=== PATIENT | female | born 1955 | race Caucasian/White ===

== ENCOUNTER 2019-04-11 15:42 | Outpatient (CLI) | payer OTHER, SELFPAY ==
--- NOTE | ~2019-04-11 | MM_ITS ---
EXAMINATION: MM screening [facility] BI w josh HISTORY: Screening mammogram TECHNIQUE: Craniocaudal and mediolateral oblique 3-D tomosynthesis images were obtained and synthetic 2-D images were generated. CAD analysis was submitted and interpreted. COMPARISON: 09/18/2017, 07/02/2016, 02/22/2015 BREAST PARENCHYMAL COMPOSITION: There are scattered areas of fibroglandular density. FINDINGS: Scattered benign-appearing calcifications are present. There is stable asymmetry in the ant erior third of the outer right breast on the craniocaudal view. There is no evidence of suspicious ma ss, calcification, or architectural distortion to suggest malignancy in either breast. There has been no suspicious interval change. IMPRESSION: 1. No mammographic evidence of malignancy. 2. Recommend routine screening mammography in one year. BI-RADS Category 2: Benign finding(s). Reviewed, dictated and finalized at location A. CLOSER
== END 2019-04-11 15:43 | disposition home or self-care (01) ==
DX: Z12.31 Encounter for screening mammogram for malignant neoplasm of breast (principal)
CPT/HCPCS: 77063; 77067

== ENCOUNTER 2019-11-14 12:00 | Outpatient (CLI) | payer OTHER, SELFPAY ==
[2019-11-14 13:33] LABS: Hemoglobin A1C 8.9 % (<5.7)
[2019-11-14 13:36] LABS: Anion Gap 10 mmol/L (8-16); Blood Urea Nitrogen 15 mg/dL (7-17); Calcium 9.8 mg/dL (8.4-10.2); Carbon Dioxide 26 mmol/L (22-30); Chloride 101 mmol/L (98-107); Estimated Glomerular Filt Rate > 60; Glucose 149 mg/dL (65-105); Potassium 4.3 mmol/L (3.4-5.0); Sodium 137 mmol/L (137-145)
== END 2019-11-14 12:01 | disposition home or self-care (01) ==
LOC: ANHLAB 12:03
PROVIDERS: PCP Family Medicine; Visit Provider Family Medicine
DX: E11.65 Type 2 diabetes mellitus with hyperglycemia (principal)
CPT/HCPCS: 36415; 80048; 83036

== ENCOUNTER 2020-05-28 07:30 | Outpatient (CLI) | payer OTHER, SELFPAY ==
--- NOTE | ~2020-05-28 | MM_ITS ---
EXAMINATION: MM screening [facility] BI w josh HISTORY: Screening mammogram TECHNIQUE: Craniocaudal and mediolateral oblique 3-D tomosynthesis images were obtained and synthetic 2-D images were generated. CAD analysis was submitted and interpreted. COMPARISON: 04/11/2019, 09/18/2017, 07/02/2016 bilateral digital screening mammogram examinations BREAST PARENCHYMAL COMPOSITION: There are scattered areas of fibroglandular density. FINDINGS: Occasional benign calcifications. There is no evidence of suspicious mass, calcification, o r architectural distortion to suggest malignancy in either breast. There has been no suspicious inter reina change. IMPRESSION: 1. No mammographic evidence of malignancy. 2. Recommend routine screening mammography in one year. BI-RADS Category 2: Benign finding(s). Reviewed, dictated and finalized at location A.
== END 2020-05-28 07:31 | disposition home or self-care (01) ==
PROVIDERS: PCP Family Medicine
DX: Z12.31 Encounter for screening mammogram for malignant neoplasm of breast (principal)
CPT/HCPCS: 77063; 77067

== ENCOUNTER 2021-06-14 01:05 | Day surgery (SDC) | payer OTHER, MEDICARE, SELFPAY ==
[2021-06-03 10:10] VITALS: BMI 25.1
[2021-06-14 09:20] VITALS: BP 130/67; PULSE 81; RESP 81; TEMP 36.6; O2SAT 99; BMI 24.5
[2021-06-14] MEDS: LACTATED RINGERS 1,000 ML 150 ML IV CONT (09:43)
[2021-06-14 09:45] LABS: Glucose Point of Care 169 mg/dl (65-105)
--- NOTE | 2021-06-14 09:51 | WPDGICN ---
Assessment and Plan Assessment and plan (1) Encounter for screening colonoscopy: Code(s): Z12.11 - Encounter for screening for malignant neoplasm of colon Status: Acute Assessment and Plan: Patient presents for neoplasia screening colonoscopy. She appears to be at average risk for colon polyps. Further recommendations will be given after endoscopy. (2) Arteriovenous malformation of digestive system vessel: Code(s): K55.20 - Angiodysplasia of colon without hemorrhage Status: Acute Assessment and Plan: Patient has a distant history of an AVM of the colon identified a colonoscopy 8 years ago. This will be assessed at the time of screening colonoscopy. GI Consult Note Consult date/time: 06/14/21 09:51 HPI: Donald De is a 65 year old female Presents for screening colonoscopy. Patient reports that her current weight appetite and bowel movements are normal. She denies abdominal pain. She has had no bleeding. Family history is significant that her father had colon polyps. Patient did have a colonoscopy 8-10 years ago that revealed a small AVM. She has had no recent bleeding. She denies abdominal pain. Review of Systems Review of Systems: All systems reviewed & are unremarkable except as noted in HPI and below PMFSH Past Medical History Medical History (Updated 06/14/21 @ 09:52 by Lucio Forman MD) SOB (shortness of breath) (01/23/19) Family History Family History (Updated 12/24/17 @ 09:36 by DOCTOR UNKNOWN) Sibling Diabetes mellitus Grandparent Family history of glaucoma Diabetes mellitus Mother Hypertension, Onset Age: 78 Family history of cardiovascular disease, Onset Age: 78 Family history of malignant neoplasm Family history of congestive heart failure, Onset Age: 78 Father Family history of cardiovascular disease Diabetes mellitus Social History Social History Smoking packs per day: 1 Smoking cigarettes per day: 20.0 Years smoked: 10 Smoking pack-years: 10.00 Smoking status: Former smoker Tobacco type: cigarettes Alcohol intake: never Substance use: never Substance use type: does not use Living arrangements: with family Spiritual care concerns: No Meds Home Medications and Allergies Home Medications Medication Instructions Recorded Confirmed Type aspirin 81 mg tablet,delayed 81 mg PO DAILY 01/25/19 06/14/21 History release fenofibrate 150 mg capsule 150 mg PO DAILY 01/25/19 06/14/21 History loratadine 10 mg tablet 10 mg PO DAILY 01/25/19 06/14/21 History sitagliptin 50 mg-metformin 1,000 1 tablet PO BID 01/25/19 06/14/21 History mg tablet fluoxetine 40 mg capsule 40 mg PO DAILY #90 cap 02/10/19 06/14/21 Rx lisinopril 10 mg tablet 10 mg PO DAILY #90 tablet 03/24/19 06/14/21 Rx atorvastatin 20 mg PO HS 06/03/21 06/14/21 History budesonide-formoterol [Symbicort] 2 puff INHALATION DAILY 06/03/21 06/14/21 History calcium 600 mg PO BID 06/03/21 06/14/21 History cholecalciferol (vitamin D3) 25 mcg PO DAILY 06/03/21 06/14/21 History [Vitamin D3] dapagliflozin [Farxiga] 10 mg PO DAILY 06/03/21 06/14/21 History fluticasone propionate [Flonase] 2 spray INTRANASAL DAILY 06/03/21 06/14/21 History gemfibrozil 600 mg PO BID 06/03/21 06/14/21 History insulin glargine [Lantus Solostar 20 unit SUBCUT DAILY 06/03/21 06/14/21 History U-100 Insulin] qbvgzkgxaotq-Os-ksml-minerals 1 tablet PO DAILY 06/03/21 06/14/21 History [Multiple Vitamin, Womens] omeprazole 40 mg PO DAILY 06/03/21 06/14/21 History pioglitazone 45 mg PO DAILY 06/03/21 06/14/21 History Allergies Allergy/AdvReac Type Severity Reaction Status Date / Time Penicillins Allergy Severe Swelling Verified 06/14/21 09:29 Vital Signs Vital Signs - 24 hr 06/14/21 09:20 Temperature 97.9 F Pulse Rate 81 Respiratory Rate 81 H Blood Pressure 130/67 Pulse Oximetry 99 Exam Narrative: Physical exam reveals patient to be cliff
--- NOTE | 2021-06-14 10:19 | WPDANESEPPF ---
Anes - Initial Pre Proc Eval Procedure: Operation Date: 06/14/21 10:30 Proposed Procedures p Screening Colonoscopy - Lucio Forman MD Date/Time: 06/14/21 10:20 Surgeon: Lucio Forman MD Pre Op Diagnosis: neoplasm screening Patient Data Age: 65 Gender: F Height: 1.73 m Weight: 73.2 kg Last Vital Signs Temp 97.9 F 06/14/21 09:20 Pulse 81 06/14/21 09:20 Resp 81 H 06/14/21 09:20 BP 130/67 06/14/21 09:20 Pulse Ox 99 06/14/21 09:20 Allergies Allergy/AdvReac Type Severity Reaction Status Date / Time Penicillins Allergy Severe Swelling Verified 06/14/21 09:29 Home Medications Medication Instructions Recorded Confirmed Type aspirin 81 mg tablet,delayed 81 mg PO DAILY 01/25/19 06/14/21 History release fenofibrate 150 mg capsule 150 mg PO DAILY 01/25/19 06/14/21 History loratadine 10 mg tablet 10 mg PO DAILY 01/25/19 06/14/21 History sitagliptin 50 mg-metformin 1,000 1 tablet PO BID 01/25/19 06/14/21 History mg tablet fluoxetine 40 mg capsule 40 mg PO DAILY #90 cap 02/10/19 06/14/21 Rx lisinopril 10 mg tablet 10 mg PO DAILY #90 tablet 03/24/19 06/14/21 Rx atorvastatin 20 mg PO HS 06/03/21 06/14/21 History budesonide-formoterol [Symbicort] 2 puff INHALATION DAILY 06/03/21 06/14/21 History calcium 600 mg PO BID 06/03/21 06/14/21 History cholecalciferol (vitamin D3) 25 mcg PO DAILY 06/03/21 06/14/21 History [Vitamin D3] dapagliflozin [Farxiga] 10 mg PO DAILY 06/03/21 06/14/21 History fluticasone propionate [Flonase] 2 spray INTRANASAL DAILY 06/03/21 06/14/21 History gemfibrozil 600 mg PO BID 06/03/21 06/14/21 History insulin glargine [Lantus Solostar 20 unit SUBCUT DAILY 06/03/21 06/14/21 History U-100 Insulin] pfbclpuenbzr-Jk-czbo-minerals 1 tablet PO DAILY 06/03/21 06/14/21 History [Multiple Vitamin, Womens] omeprazole 40 mg PO DAILY 06/03/21 06/14/21 History pioglitazone 45 mg PO DAILY 06/03/21 06/14/21 History Laboratory Tests 06/14/21 09:42 POC Capillary Glucose 169 mg/dl H mg/dl (65-105) Patient hx anesthesia problems: none Family hx anesthesia problems: none Results Review: All pre-operative results and documents have been reviewed as part of the pre-operative evaluation. [facility] Past Medical History Medical History (Updated 06/14/21 @ 09:52 by Lucio Forman MD) SOB (shortness of breath) (01/23/19) Family History Family History (Updated 12/24/17 @ 09:36 by DOCTOR UNKNOWN) Sibling Diabetes mellitus Grandparent Family history of glaucoma Diabetes mellitus Mother Hypertension, Onset Age: 78 Family history of cardiovascular disease, Onset Age: 78 Family history of malignant neoplasm Family history of congestive heart failure, Onset Age: 78 Father Family history of cardiovascular disease Diabetes mellitus Social History Social History Smoking packs per day: 1 Smoking cigarettes per day: 20.0 Years smoked: 10 Smoking pack-years: 10.00 Smoking status: Former smoker Tobacco type: cigarettes Alcohol intake: never Substance use: never Substance use type: does not use Living arrangements: with family Spiritual care concerns: No Anes - Eval Final PreProcedure Day of Procedure 06/14/21 10:20 Patient weight: overweight Heart: regular rate and rhythm Lungs: clear to auscultation Airway: Mallampati scale class III Neurological: alert and oriented Last oral intake: >/= 8 hours ASA classification: III Emergent: no Anesthetic plan: proceed Anesthesia type and monitoring: general GIVS and standard monitoring Results Review: All pre-operative results and documents have been reviewed as part of the pre-operative evaluation. Informed Consent: The patient's anesthetic plan and its attendant risks and benefits were discussed with the patient/family/POA. Questions were solicited and answers provided to the satisfaction of the patient/family/POA.
[2021-06-14] MEDS: SIMETHICONE ORAL SUSPENSION 20 MG/0.3 ML 30 ML BOTTLE 0.6 ML IRRIGATION (10:29)
[2021-06-14 10:38] VITALS: BP 115/65; PULSE 73; RESP 22; O2SAT 99
[2021-06-14 10:48] VITALS: BP 112/65; PULSE 72; RESP 25; O2SAT 99
[2021-06-14 10:58] VITALS: BP 114/72; PULSE 69; RESP 20; O2SAT 99
[2021-06-14 11:03] LABS: Glucose Point of Care 138 mg/dl (65-105)
== END 2021-06-14 11:05 | disposition home or self-care (01) ==
PROVIDERS: PCP Family Medicine; Visit Provider Internal Medicine Gastroenterology
PROC: 0DJD8ZZ Inspection of Lower Intestinal Tract, Via Natural or Artificial Opening Endoscopic (ICD-10-PCS; CPT 45378; principal; 2021-06-14 10:30)
DX: Z12.11 Encounter for screening for malignant neoplasm of colon (principal); Z83.71 Family history of colonic polyps; K22.0 Achalasia of cardia; K64.8 Other hemorrhoids; Z79.82 Long term (current) use of aspirin; Z79.4 Long term (current) use of insulin; Z87.891 Personal history of nicotine dependence
CPT/HCPCS: 45378; 82948; J2704; J7120

== ENCOUNTER 2021-07-19 14:39 | Outpatient (CLI) | payer OTHER, MEDICARE, SELFPAY ==
--- NOTE | ~2021-07-19 | DEXA_ITS ---
Bone Density Report Name: FELI FLORES Age: 65 Sex: Female Ethnicity: White Date of : 1955 Indication: postmenopausal; screening for osteoporosis; height loss; hysterectomy; Referring Provider: GUY NUÑEZ Study: Bone densitometry was performed. Exam Date: July 19, 2021 Accession number: [id number] Bone Density: Region BMD T-score Z-score Classification AP Spine(L1-L4) 1.152 1.0 2.8 Normal Femoral Neck (Left) 0.655 -1.8 -0.2 Osteopenia Total Hip (Left) 0.769 -1.4 -0.1 Osteopenia Femoral Neck (Right) 0.668 -1.6 -0.1 Osteopenia Total Hip (Right) 0.815 -1.0 0.2 Normal Total Hip Mean 0.792 -1.2 0.1 Osteopenia World Health Organization criteria for BMD impression classify patients as: Normal (T-score at or above -1.0), Osteopenia (T-score between -1.0 and -2.5), or Osteoporosis (T-score at or below -2.5). 10-year Fracture Risk(1): Major Osteoporotic Fracture 9.8% Hip Fracture 1.3% Reported Risk Factors: [place] (), Neck BMD=0.655, BMI=26.3 (1) FRAX(R) Version 3.08. Fracture probability calculated for an untreated patient. Fracture probability may be lower if the patient has received treatment. Clinical Information Provided by Patient: Has used the following medications: Vitamin D, Calcium Has the following medical conditions: Hysterectomy Patient maximum height was 68 Menopause Age: 27 No regular weight bearing exercise Drinks caffeinated beverages Onset of menses at age 14 Number of children 1 Impression: The patient has low bone mass, based on the Left Femoral Neck T-score. The patient has an estimated ten-year risk of hip fracture of 1.3% and an estimated ten-year risk of major fracture of 9.8%, based on the WHO FRAX algorithm. Discussion: BONE DENSITY IS LOW AT ONE OR MORE SKELETAL SITES. This patient's lowest T-score is low at one or more skeletal sites. It meets the World Health Organization's (WHO) criteria for ?low bone mass? (T-score between -1.0 and -2.5). The patient's 10-year risk of fracture as calculated by FRAX is less than the threshold where pharmacological therapy is recommended by the National Osteoporosis Foundation (NOF). However, all treatment decisions require clinical judgment and consideration of individual patient factors, including patient preferences, comorbidities, previous drug use, risk factors not captured in the FRAX model (e.g., frailty, falls, vitamin D deficiency, increased bone turnover, interval significant decline in bone density) and possible under or overestimation of fracture risk by FRAX. The patient should follow a healthful lifestyle (good nutrition with adequate calcium and vitamin D, and appropriate weight-bearing exercise). Follow-Up: Consider repeating this study in 2 to 3 years to reassess this patient's status,
--- NOTE | ~2021-07-19 | MM_ITS ---
EXAMINATION: MM screening [facility] BI w josh HISTORY: Screening mammogram TECHNIQUE: Craniocaudal and mediolateral oblique 3-D tomosynthesis images were obtained and synthetic 2-D images were generated. CAD analysis was submitted and interpreted. COMPARISON: 05/28/2020, 04/11/2019, 09/18/2017 bilateral screening mammogram examinations BREAST PARENCHYMAL COMPOSITION: There are scattered areas of fibroglandular density FINDINGS: There is no evidence of suspicious mass, calcification, or architectural distortion to sugg est malignancy in either breast. There has been no suspicious interval change. IMPRESSION: 1. No mammographic evidence of malignancy. 2. Recommend routine screening mammography in one year. BI-RADS Category 1: Negative Reviewed, dictated and finalized at location A.
== END 2021-07-19 14:40 | disposition home or self-care (01) ==
DX: Z12.31 Encounter for screening mammogram for malignant neoplasm of breast (principal); Z78.0 Asymptomatic menopausal state; Z13.820 Encounter for screening for osteoporosis; M85.852 Other specified disorders of bone density and structure, left thigh; M85.851 Other specified disorders of bone density and structure, right thigh
CPT/HCPCS: 77063; 77067; 77080

== ENCOUNTER 2021-08-06 07:23 | Outpatient (CLI) | payer OTHER, MEDICARE, SELFPAY ==
[2021-08-06 08:14] LABS: Hemoglobin A1C 9.1 % (<5.7)
[2021-08-06 08:30] LABS: Anion Gap 7 mmol/L (8-16); Blood Urea Nitrogen 21 mg/dL (7-17); Calcium 9.1 mg/dL (8.4-10.2); Carbon Dioxide 26 mmol/L (22-30); Chloride 102 mmol/L (98-107); Cholesterol 199 mg/dL (0-200); Estimated Glomerular Filt Rate > 60; Glucose 233 mg/dL (65-110); HDL Direct 36 mg/dL; Potassium 4.9 mmol/L (3.4-5.0); Sodium 135 mmol/L (137-145); Triglycerides 360 mg/dL (<150)
[2021-08-06 08:41] LABS: LDL Cholesterol Direct 86 mg/dL
== END 2021-08-06 07:24 | disposition home or self-care (01) ==
DX: E11.65 Type 2 diabetes mellitus with hyperglycemia (principal); E78.5 Hyperlipidemia, unspecified
CPT/HCPCS: 36415; 80048; 80061; 83036

== ENCOUNTER 2021-10-02 16:27 | Emergency (ER) | payer OTHER, MEDICARE, SELFPAY ==
[2021-10-02] VITALS (21 sets, daily range): BP systolic 94–132; BP diastolic 45–84; PULSE 77–95; RESP 10–29; TEMP 36.3; O2SAT 92–98
--- NOTE | ~2021-10-02 | CT_ITS ---
EXAMINATION: CT abdomen pelvis w con DATE: 10/02/2021 18:56 INDICATION: lower ABD pain, N/V/D TECHNIQUE: Computed tomography (CT) of the abdomen and pelvis was performed with 100 mL Omnipaque-350 intravenous contrast. Automated exposure control and iterative reconstruction technique were employe d. The dose-length product was 476.95 mGy-cm. COMPARISON: None. FINDINGS: Lower thorax: Coronary artery and/or bowel calcifications. Liver: Enlarged liver. Nodular border. Fatty infiltration. Biliary/Gallbladder: Gallbladder is absent. No bile duct dilation. Pancreas: No mass or duct dilation. Spleen: Enlarged. Adrenals:No mass. Kidneys: No mass, stone, or hydronephrosis. GI tract: No small or large bowel dilation. Appendix not visualized. Fluid-filled colon. Diverticulos is without diverticulitis. Mesentery/Peritoneum: No ascites, mass, or free air. Retroperitoneum: No mass. Pelvis: Uterus not visualized. Soft Tissues: Soft tissues and body wall unremarkable. Bones: No acute osseous finding. IMPRESSION: Hepatosplenomegaly and cirrhosis. Fluid-filled colon, as can be seen with diarrheal illness. Reviewed, dictated and finalized at location K. IMPRESSION: Hepatosplenomegaly and cirrhosis. Fluid-filled colon, as can be seen with diarr heal illness.
[2021-10-02 16:33] LABS: Glucose Point of Care 229 mg/dl (65-105)
--- NOTE | 2021-10-02 17:00 | ED.NAVMDI ---
HPI - Nausea/Vomiting/Diarrhea General Chief complaint: Nausea/Vomiting/Diarrhea Stated complaint: emesis Time Seen by Provider: 10/02/21 16:56 Source: patient Mode of arrival: ambulatory Limitations: no limitations History of Present Illness HPI Narrative: Patient is a 66-year-old female who presents the ED with report of N/V/D. Patient reports she has had intermittent abdominal issues over the last couple months with intermittent episodes of nausea and vomiting. Today around 2 PM after eating lunch, she developed diarrhea. She then developed nausea and vomiting simultaneously. She states she has been unable to keep anything down since then. Her episodes over the last couple months have not been this severe. Reports some lower abdominal cramping. Denies any blood in vomit or stool. Denies any fever. Denies any recent cough or cold symptoms. No urinary symptoms. Patient does admit to occasional marijuana use, but states she has not used any in the last 2 weeks. Related Data Home Medications Medication Instructions Recorded Confirmed aspirin 81 mg tablet,delayed 81 mg PO DAILY 01/25/19 06/14/21 release fenofibrate 150 mg capsule 150 mg PO DAILY 01/25/19 06/14/21 loratadine 10 mg tablet (Claritin) 10 mg PO DAILY 01/25/19 06/14/21 sitagliptin 50 mg-metformin 1,000 1 tablet PO BID 01/25/19 06/14/21 mg tablet (Janumet) atorvastatin 20 mg tablet 20 mg PO HS 06/03/21 06/14/21 budesonide-formoterol HFA 80 2 puff inhalation DAILY 06/03/21 06/14/21 mcg-4.5 mcg/actuation aerosol inhaler (Symbicort) calcium 600 mg capsule 600 mg PO BID 06/03/21 06/14/21 cholecalciferol (vitamin D3) 25 25 mcg PO DAILY 06/03/21 06/14/21 mcg (1,000 unit) tablet (Vitamin D3) dapagliflozin 10 mg tablet 10 mg PO DAILY 06/03/21 06/14/21 (Farxiga) fluticasone propionate 50 2 spray intranasal DAILY 06/03/21 06/14/21 mcg/actuation nasal spray,suspension gemfibrozil 600 mg tablet 600 mg PO BID 06/03/21 06/14/21 insulin glargine 100 unit/mL (3 20 unit subcut DAILY 06/03/21 06/14/21 mL) subcutaneous pen (Lantus Solostar U-100 Insulin) yuwzvzgwceib-Nl-ucpu-minerals 1 tablet PO DAILY 06/03/21 06/14/21 omeprazole 40 mg capsule,delayed 40 mg PO DAILY 06/03/21 06/14/21 release pioglitazone 45 mg tablet 45 mg PO DAILY 06/03/21 06/14/21 Allergies Allergy/AdvReac Type Severity Reaction Status Date / Time Penicillins Allergy Severe Swelling Verified 06/14/21 09:29 Review of Systems Review of Systems: CONSTITUTIONAL: Denies fever, chills, or sweats. ENT: Denies rhinorrhea, congestion, sore throat. CARDIOVASCULAR: Denies chest pain. RESPIRATORY: Denies cough or dyspnea. GASTROINTESTINAL: Reports lower ABD cramping, N/V/D. Denies hematemesis, rectal bleeding, constipation. GENITOURINARY: Denies dysuria or hematuria. All systems reviewed & are unremarkable except as noted in HPI and below PMFSH Past Medical History Medical History (Updated 10/03/21 @ 03:04 by Marilu Aldrich PA-C) Arteriovenous malformation of digestive system vessel COPD (chronic obstructive pulmonary disease) Essential (primary) hypertension Fatty liver GERD (gastroesophageal reflux disease) Pure hyperglyceridemia SOB (shortness of breath) (01/23/19) Type 2 diabetes mellitus with hyperglycemia Surgical History Surgical History (Updated 10/02/21 @ 17:19 by Marilu Aldrich PA-C) History of cholecystectomy History of hysterectomy Family History Family History (Updated 12/24/17 @ 09:36 by DOCTOR UNKNOWN) Sibling Diabetes mellitus Grandparent Family history of glaucoma Diabetes mellitus Mother Hypertension, Onset Age: 78 Family history of cardiovascular disease, Onset Age: 78 Family history of malignant neoplasm Family history of congestive heart failure, Onset Age: 78 Father Family history of cardiovascular disease Diabetes mellitus Social History Social History (Updated 10/03/21 @ 00:30 by Marilu Aldrich PA-C) [place]
[2021-10-02] MEDS: ONDANSETRON INJ 4 MG/2 ML VIAL IV PUSH (17:30)
[2021-10-02] MEDS: SODIUM CHLORIDE 0.9% IV 1,000 ML 999 ML IV CONT ×3 (17:31→22:02)
[2021-10-02 17:33] LABS: Albumin Level 5.7 g/dL (3.5-5.1); Alkaline Phosphatase 61 U/L (38-126); Anion Gap 18 mmol/L (8-16); Aspartate Amino Transferase 53 U/L (14-36); Bilirubin,Total 0.8 mg/dL (0.2-1.3); Blood Urea Nitrogen 22 mg/dL (7-17); Calcium 11.4 mg/dL (8.4-10.2); Carbon Dioxide 20 mmol/L (22-30); Chloride 96 mmol/L (98-107); Estimated CRCL calculation 45 ml/min; Estimated Glomerular Filt Rate 50; Glucose 253 mg/dL (65-110); Lipase 251 U/L (23-300); Potassium 3.7 mmol/L (3.4-5.0); Sodium 134 mmol/L (137-145)
[2021-10-02 17:41] LABS: Alanine Aminotransferase 34 U/L (6-35)
[2021-10-02 18:04] LABS: Hematocrit 42.5 % (37.0-47.0); Hemoglobin 13.5 g/dL (12.0-15.0); Mean Corpuscular HGB Conc 31.8 g/dl (32-36); Mean Corpuscular Hemoglobin 29.2 pg (26-34); Mean Corpuscular Volume 91.8 fl (80-100); Mean Platelet Volume 11.3 fl (7.4-10.4); Platelet Count Result 369 k/mm3 (150-375); Red Blood Count 4.63 M/mm3 (4.2-5.4); Red Cell Distribution Width 14.2 % (11.5-14.5); White Blood Count 25.6 K/mm3 (4.5-10.0)
[2021-10-02 18:29] LABS: Band Neutrophils Percent 3 % (0-6); Eosinophils Absolute Manual 0.25 K/mm3 (0.02-0.5); Eosinophils Percent Manual 1 % (0-4); Lymphocytes Absolute Manual 2.04 K/mm3 (1.1-4.5); Monocytes Absolute Manual 1.53 K/mm3 (0.1-0.90); Monocytes Percent Manual 6 % (3-9); Neutrophils Absolute Manual 21.76 K/mm3 (1.7-7.2); Neutrophils Percent Manual 82 % (46-73); Total Cells Counted 100
[2021-10-02 18:30] LABS: Platelet Estimate Adequate (Adequate)
[2021-10-02 18:31] LABS: Anisocytosis 1+ (NORMAL); Hypochromasia 1+ (NORMAL)
[2021-10-02 19:42] LABS: Appearance Urine Clear (Clear); Bilirubin Urine Negative (Negative); Blood Urine Negative (Negative); Color Urine Yellow (Yellow); Glucose Urine UA 3+ mg/dL (Negative); Ketones Urine Negative (Negative); Leukocyte Esterase Ur Negative LEU/UL (Negative); Nitrate Urine Negative (Negative); Protein Urine Negative (Negative); Specific Grav Ur <= 1.005 (1.001-1.035); Urobilinogen Urine 0.2 mg/dL (<2.0)
[2021-10-02 19:45] LABS: Mucus Urine Rare /lpf; RBC Urine 0-2 /hpf (0-2); WBC Urine 0-3 /hpf
[2021-10-02 19:49] LABS: Add Urine Microscopic? YES
[2021-10-02 20:43] LABS: Lactic Acid Reflex 1.9 mmol/L (0.7-2.0)
[2021-10-02 21:15] LABS: Beta-Hydroxybutyrate/Acetoacetate 0.31 mmol/L (0.02-0.27)
[2021-10-02 21:15] LABS: Hepatitis B Surface Antigen Negative (Negative)
[2021-10-02 21:20] LABS: HAV RESULT Negative (Negative); Hepatitis B Core IgM Result Negative (Negative)
[2021-10-02 21:32] LABS: Hepatitis C Virus Antibody Negative (Negative)
[2021-10-02] MEDS: HALOPERIDOL LACTATE 5 MG/ML VIAL IV PUSH (22:03)
[2021-10-02] MEDS: PANTOPRAZOLE SODIUM IV 40 MG VIAL IV PUSH (22:03)
[2021-10-02] MEDS: METOCLOPRAMIDE HCL INJ 10 MG/2 ML VIAL IV PUSH (22:03)
[2021-10-02 22:32] LABS: SARS-CoV-2 RNA PCR Negative
[2021-10-02 23:31] LABS: Basophils Percent Auto 0.2 % (0.2-1.2); Eosinophils Absolute Auto 0.1 K/mm3 (0-0.3); Hematocrit 32.8 % (37.0-47.0); Hemoglobin 10.3 g/dL (12.0-15.0); Immature Granulocyte Absolute 0.04 K/mm3 (0.00-0.031); Immature Granulocyte Percent A 0.4 % (0-0.5); Lymphocytes Absolute Auto 0.65 K/mm3 (0.9-3.2); Lymphocytes Percent Auto 6.7 % (18.3-44.2); Mean Corpuscular HGB Conc 31.4 g/dl (32-36); Mean Corpuscular Hemoglobin 28.9 pg (26-34); Mean Corpuscular Volume 91.9 fl (80-100); Mean Platelet Volume 11.3 fl (7.4-10.4); Monocytes Absolute Auto 0.4 K/mm3 (0.1-0.6); Monocytes Percent Auto 3.9 % (2.6-8.5); Neutrophils Absolute Auto 8.6 K/mm3 (1.3-6.7); Neutrophils Percent Auto 87.8 % (45.5-73.1); Platelet Count Result 176 k/mm3 (150-375); Red Blood Count 3.57 M/mm3 (4.2-5.4); Red Cell Distribution Width 14.1 % (11.5-14.5); White Blood Count 9.7 K/mm3 (4.5-10.0)
[2021-10-02 23:39] LABS: Alanine Aminotransferase 23 U/L (6-35); Albumin Level 3.7 g/dL (3.5-5.1); Alkaline Phosphatase 37 U/L (38-126); Anion Gap 8 mmol/L (8-16); Aspartate Amino Transferase 31 U/L (14-36); Bilirubin,Total 0.4 mg/dL (0.2-1.3); Blood Urea Nitrogen 20 mg/dL (7-17); Calcium 8.1 mg/dL (8.4-10.2); Carbon Dioxide 21 mmol/L (22-30); Chloride 109 mmol/L (98-107); Estimated CRCL calculation 49 ml/min; Estimated Glomerular Filt Rate 55; Glucose 131 mg/dL (65-110); Potassium 4.4 mmol/L (3.4-5.0); Sodium 138 mmol/L (137-145)
[2021-10-03 00:01] VITALS: BP 124/62; O2SAT 94
[2021-10-03 00:16] VITALS: BP 100/59; O2SAT 95
[2021-10-03 00:31] VITALS: BP 100/53; O2SAT 96
[2021-10-03 01:00] VITALS: BP 95/55; PULSE 74; RESP 16; O2SAT 96
== END 2021-10-03 01:05 | disposition home or self-care (01) ==
PROVIDERS: Physician Assistant; Emergency Provider Emergency Medicine
DX: K52.9 Noninfective gastroenteritis and colitis, unspecified (principal); E86.0 Dehydration; Z20.822 Contact with and (suspected) exposure to COVID-19; K76.0 Fatty (change of) liver, not elsewhere classified; J44.9 Chronic obstructive pulmonary disease, unspecified; I10 Essential (primary) hypertension; K21.9 Gastro-esophageal reflux disease without esophagitis; E11.9 Type 2 diabetes mellitus without complications; Z79.4 Long term (current) use of insulin
CPT/HCPCS: 36415; 51701; 74177; 80053; 80074; 81001; 82010; 82948; 83605; 83690; 85025; 87040; 96361; 96374; 96375; 99284; C9113; C9803; J1630; J2405; J2765; J7030; Q9967; U0003; U0005

== ENCOUNTER 2021-11-12 06:44 | Outpatient (CLI) | payer OTHER, MEDICARE, SELFPAY ==
[2021-11-12 07:38] LABS: Anion Gap 14 mmol/L (8-16); Blood Urea Nitrogen 24 mg/dL (7-17); Calcium 9.4 mg/dL (8.4-10.2); Carbon Dioxide 24 mmol/L (22-30); Chloride 102 mmol/L (98-107); Estimated Glomerular Filt Rate > 60; Glucose 126 mg/dL (65-110); Potassium 4.2 mmol/L (3.4-5.0); Sodium 140 mmol/L (137-145)
[2021-11-12 08:34] LABS: Hemoglobin A1C 7.2 % (<5.7)
== END 2021-11-12 06:45 | disposition home or self-care (01) ==
DX: E11.9 Type 2 diabetes mellitus without complications (principal)
CPT/HCPCS: 36415; 80048; 83036

== ENCOUNTER 2022-03-07 07:07 | Outpatient (CLI) | payer OTHER, MEDICARE, SELFPAY ==
[2022-03-07 07:51] LABS: Anion Gap 9 mmol/L (8-16); Blood Urea Nitrogen 21 mg/dL (7-17); Calcium 9.4 mg/dL (8.4-10.2); Carbon Dioxide 26 mmol/L (22-30); Chloride 104 mmol/L (98-107); Cholesterol 171 mg/dL (0-200); Estimated Glomerular Filt Rate 55; Glucose 128 mg/dL (65-110); HDL Direct 45 mg/dL; Potassium 4.7 mmol/L (3.4-5.0); Sodium 139 mmol/L (137-145); Triglycerides 157 mg/dL (<150)
[2022-03-07 08:02] LABS: LDL Cholesterol Direct 83 mg/dL
[2022-03-07 11:27] LABS: Hemoglobin A1C 6.3 % (<5.7)
== END 2022-03-07 07:08 | disposition home or self-care (01) ==
DX: E11.9 Type 2 diabetes mellitus without complications (principal); E78.2 Mixed hyperlipidemia
CPT/HCPCS: 36415; 80048; 80061; 83036

== ENCOUNTER 2022-10-23 07:45 | Outpatient (CLI) | payer OTHER, MEDICARE, SELFPAY ==
--- NOTE | ~2022-10-23 | MM_ITS ---
EXAMINATION: MM screening [facility] BI w josh HISTORY: Screening mammogram TECHNIQUE: Craniocaudal and mediolateral oblique 3-D tomosynthesis images were obtained and synthetic 2-D images were generated. CAD analysis was submitted and interpreted. COMPARISON: 07/19/2021, 05/28/2020, 04/11/2019 BREAST PARENCHYMAL COMPOSITION: There are scattered areas of fibroglandular density. FINDINGS: No suspicious mass, calcification, or architectural distortion are identified in either laura ast to suggest malignancy. There has been no suspicious interval change. IMPRESSION: 1. No mammographic evidence of malignancy. 2. Recommend routine screening mammography in one year. BI-RADS Category 1: Negative Reviewed, dictated and finalized at location L.
== END 2022-10-23 07:46 | disposition home or self-care (01) ==
PROVIDERS: Visit Provider Family Medicine
DX: Z12.31 Encounter for screening mammogram for malignant neoplasm of breast (principal)
CPT/HCPCS: 77063; 77067

== ENCOUNTER 2024-02-22 10:55 | Outpatient (CLI) | payer OTHER, MEDICARE, SELFPAY ==
[2024-02-22 12:00] LABS: Hemoglobin A1C 9.3 % (<5.7)
== END 2024-02-22 10:56 | disposition home or self-care (01) ==
LOC: ANHLAB 11:00
PROVIDERS: Visit Provider Family Medicine
DX: E78.5 Hyperlipidemia, unspecified (principal); E11.59 Type 2 diabetes mellitus with other circulatory complications; I15.2 Hypertension secondary to endocrine disorders
CPT/HCPCS: 36415; 83036